=== PATIENT | female | born 1985 | race Caucasian/White ===

== ENCOUNTER 2017-08-14 17:06 | Emergency (ER) | payer OTHER ==
[~2017-08-14] VITALS: Ht 165.1 cm; Wt 77.1 kg
[2017-08-14 17:57] LABS: ABSOLUTE BASOPHIL COUNT 0 /CUMM (0.0-0.2); ABSOLUTE EOSINOPHIL COUNT 0.1 /CUMM (0.0-0.7); ABSOLUTE GRANULOCYTE CT 4.6 /CUMM (1.4-6.5); ABSOLUTE LYMPH COUNT 2.6 /CUMM (1.2-3.4); ABSOLUTE MONOCYTE COUNT 0.3 /CUMM (0.10-0.60); BASOPHIL % 0.2 % (0.0-2.0); EOSINOPHIL % 0.7 % (0-5); GRANULOCYTE % 60.9 % (42.2-75.2); HEMATOCRIT 38.8 % (37-47); MEAN CORPUSCULAR HGB 28.4 PG (27.0-31.0); MEAN CORPUSCULAR HGB CONC 33.6 G/DL (33.0-37.0); MEAN CORPUSCULAR VOLUME 84.5 FL (81.0-99.0); MEAN PLATELET VOLUME 7.9 FL (7.4-10.4); PLATELET COUNT 324 /CUMM (130-400); RBC DISTRIBUTION WIDTH 12.9 % (11.5-14.5); RED BLOOD CELL CT 4.59 /CUMM (4.20-5.40); WHITE BLOOD CELL COUNT 7.6 /CUMM (4.8-10.8)
--- NOTE | 2017-08-14 19:26 | ED GI/GU/ABDOMINAL COMPLAINT ---
History of Present Illness General Chief Complaint: Abdominal Pain/Flank Pain Stated Complaint: LWR ABD PAIN X2 DAYS Source: patient Exam Limitations: no limitations Vital Signs & Intake/Output Vital Signs & Intake/Output Vital Signs Date Time Temp Pulse Resp B/P B/P Pulse O2 O2 Flow FiO2 Mean Ox Delivery Rate 08/15 0034 98.4 79 15 112/68 98 Room Air 08/14 2313 98.0 98 18 105/70 99 Room Air 08/14 1740 97.4 98 18 103/68 99 Room Air ED Intake and Output 08/15 0000 08/14 1200 Intake Total Output Total Balance Patient 170 lb Weight Weight Reported by Patient Measurement Method Allergies Coded Allergies: diphenhydramine (From BENADRYL) (Severe, ANAPHYLAXIS 08/14/17) naproxen (Severe, ANAPHYLAXIS 08/14/17) tramadol (Severe, ANAPHYLAXIS 08/14/17) Reconcile Medications Doxycycline Hyclate 100 MG TABLET 1 TAB PO BID INFECTION Oxycodone HCl/Acetaminophen (Percocet 5-325 MG Tablet) 5 MG-325 MG TABLET 1 TAB PO 4XDP PRN PAIN TEN...[id number] Triage Note: 32 Y/O FEMALE C/O "SHARP" RLQ ABDOMINAL PAIN X 2 DAYS. HX ENDOMETRIOSIS AND STATES THIS FEELS SIMILIAR; LAST DOSE MOTRIN 4PM WITH NO RELIEF OF SYMPTOMS. +NAUSEA. DENIES URINARY SYMPTOMS. Triage Nurses Notes Reviewed? yes ? n Is pt currently ? No Duration: day(s):, waxing and waning Timing: recent history Quality/Severity: sharpness Location: right lower quadrant Radiation: no radiation Activities at Onset: none Modifying Factors: Worsens With: palpation. Associated Symptoms: abdominal pain, nausea/vomiting HPI: 32 yo woman h/o endometriosis, presents with 2 days of right lower quadrant pain, nausea, mild diarrhea, without vaginal discharge, fever, dysuria. Past History Travel History Traveled to [place] past 21 day No Medical History Any Pertinent Medical History? 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 No Review of Systems Review of Systems Constitutional: Denies: see HPI. Physical Exam Physical Exam Gastrointestinal: see below Comments: Review of Systems - except as otherwise noted in HPI Review of Systems Constitutional:no symptoms. EENTM:no symptoms. Respiratory:no symptoms. Cardiovascular:no symptoms. GI:no symptoms. Genitourinary:no symptoms. Musculoskeletal:no symptoms. Skin:no symptoms. Neurological/Psychological:no symptoms. Hematologic/Endocrine:no symptoms. Immunologic/Allergic:no symptoms. All Other Systems: Reviewed and Negative Physical Exam Physical Exam General Appearance: well developed/nourished, no apparent distress Head: atraumatic, normal appearance Eyes: Bilateral: normal appearance. Ears, Nose, Throat: normal pharynx, normal ENT inspection Neck: normal inspection, supple, full range of motion Respiratory: normal breath sounds, chest non-tender, no respiratory distress, quiet respiration, lungs clear Cardiovascular: regular rate/rhythm Gastrointestinal: normal bowel sounds, soft, rlq tenderness to palpation, no rebound, no guarding, no organomegaly Back: normal inspection, normal range of motion Extremities: normal inspection, normal capillary refill, normal range of motion, no edema Neurologic/Psych: no motor/sensory deficits, awake, alert, oriented x 3 Skin: intact, normal color, warm/dry Pelvic: copious clear, milky discharge with right adnexal tenderness to palpation Core Measures ACS in differential dx? No Sepsis Present: No Sepsis Focused Exam Completed? No Progress Differential Diagnosis: UTI/pyelo, endometriosis, PID vs other. Plan of Care: Orders Procedure Date/time Status Add-on Test (ER Only) 08/14 2058 Active TRICHOMONAS 08/14 1948 Complete POTASSIUM HYDROXIDE (ZAN) 08/14 1948 Complete GENITAL CULTURE 08/14 1948 Active CHLAMYDIA-GC DNA PROBE 08/14 1809 Active URINE 08/14 172 Complete URINALYSIS 08/14 172 Complete LIPASE 08/14 1722 Complete COMPREHENSIVE METABOLIC PANEL 08/14 172 Complete CBC WITHOUT DIFFERENTIAL 08/14 172 Complete Laboratory Tests 08/14/171809: Urine Color YEL, Urine Clarity CLEAR, Urine pH 6.0, Ur Specific [place] 1.025, Urine Protein NEG, Urine Ketones NEG, Urine Nitrite NEG, Urine Bilirubin NEG, Urine Urobilinogen 0.2, Ur Leukocyte Esterase NEG, Ur Microscopic EXAM NOT REQUIRED, Urine Hemoglobin NEG, Urine Glucose NEG, Urine Test NEGATIVE 08/14/17 1746: Anion Gap 13, Estimated GFR > 60, BUN/Creatinine Ratio 17.8, Glucose 100 H, Calcium 9.8, Total Bilirubin 0.7, AST 17, ALT 33, Alkaline Phosphatase 60, Total Protein 7.5, Albumin 4.4, Globulin 3.1, Albumin/Globulin Ratio 1.4, Lipase 24, CBC w Diff NO MAN DIFF REQ, RBC 4.59, MCV 84.5, MCH 28.4, MCHC 33.6, RDW 12.9, MPV 7.9, Gran % 60.9, Lymphocytes % 33.9, Monocytes % 4.3, Eosinophils % 0.7, Basophils % 0.2, Absolute Granulocytes 4.6, Absolute Lymphocytes 2.6, Absolute Monocytes 0.3, Absolute Eosinophils 0.1, Absolute Basophils 0 Microbiology 08/14 2049 GENITAL: ZAN Preparation - COMP 08/14 2049 GENITAL: Trichomonas Preparation - COMP 08/14 2049 GENITAL: Genital Culture - RECD 08/14 1948 GENITAL: GC DNA Probe - CAN Cancelled: NO SPECIMEN OBTAINED PER RN 08/14 1948 GENITAL: Chlamydia DNA Probe ([facility]) - CAN Cancelled: NO SPECIMEN OBTAINED PER RN 08/14 1809 URINE ROUT: GC DNA Probe - RECD 08/14 1809 URINE ROUT: Chlamydia DNA Probe ([facility]) - RECD Diagnostic Imaging: Viewed by Me: CT Scan. Discussed w/RAD: CT Scan. Radiology Impression: PATIENT: TENZIN GRIMM PRESENT AGE: 32 PATIENT ACCOUNT NO: [id number] : 84 LOCATION: [facility] ORDERING PHYSICIAN: Tim LOVE SERVICE DATE: 08/14/17 EXAM TYPE: CAT - CT ABD & PELVIS W IV CONTRAST EXAMINATION: CT ABDOMEN AND PELVIS WITH CONTRAST CLINICAL INFORMATION: Lower abdominal pain. COMPARISON: None TECHNIQUE: Multidetector volumetric imaging was performed of the abdomen and pelvis following IV administration of 95 mL of Optiray 320 intravenous contrast. Sagittal and coronal reformatted images were obtained on the technologist's workstation. DLP: 348.88 mGy-cm FINDINGS: LUNG BASES: The visualized lung bases are unremarkable. LIVER, GALLBLADDER, AND BILIARY TREE: The liver is normal in size, shape, and attenuation. No focal hepatic lesion or biliary ductal dilatation is present. The gallbladder is surgically absent. PANCREAS: Unremarkable. SPLEEN: Unremarkable. ADRENAL GLANDS: Unremarkable. KIDNEYS AND URETERS: The kidneys are normal in size, shape, and attenuation. No hydronephrosis, hydroureter, or calculi seen. No perinephric stranding. BLADDER: Underdistended however grossly unremarkable. GASTROINTESTINAL TRACT: The small and large bowel are unremarkable. An appendix is not clearly identified however there are no inflammatory changes in the expected location of the appendix. ABDOMINAL WALL: No significant hernia is appreciated. LYMPH NODES: No evidence of pathologically enlarged lymph nodes. A few subcentimeter lymph nodes are noted in the right lower quadrant in the pericecal region measuring up to 0.5 cm in short axis. OMENTUM, MESENTERY AND PERITONEAL CAVITY: No evidence of free intraperitoneal air or fluid. No inflammatory changes or nodularities seen in the omentum and mesentery. VASCULAR: Unremarkable. PELVIC VISCERA: Normal CT appearance of the uterus, uterus is mildly deviated to the right. There is a 2.1 cm hypodense cyst in the left ovary likely representing a physiologic cyst. Normal CT appearance of the right ovary with internal physiologic changes. OSSEOUS STRUCTURES: Unremarkable. IMPRESSION: 1. An appendix is not identified however there are no inflammatory changes in the expected location of the appendix. 2. Physiologic changes in the ovaries with a 2 cm dominant cyst in the left ovary. 3. No acute abnormality. DICTATED BY: Sara Franklin MD DATE/TIME DICTATED:08/14/172041 PROCESS DEVELOPER:CARMEN DATE/TIME TRANSCRIBED:2041 CONFIDENTIAL, DO NOT COPY WITHOUT APPROPRIATE AUTHORIZATION. < Electronically signed in Other Vendor System> SIGNED BY: Sara Franklin MD 09/24, PATIENT: TENZIN GRIMM PRESENT AGE: 32 PATIENT ACCOUNT NO: [id number] : 84 LOCATION: [facility] ORDERING PHYSICIAN: Ricky Briggs MD SERVICE DATE: 08/14/17 EXAM TYPE: US - US- TRANSVAGINAL EXAMINATION: ULTRASOUND OF THE PELVIS CLINICAL INFORMATION: Right adnexal pain. COMPARISON: CT from today.. TECHNIQUE: Transabdominal and transvaginal pelvic ultrasound. Doppler evaluation with spectral analysis was performed. A transvaginal study was performed in addition to the transabdominal study which did not yield an adequate examination of the uterus and ovaries due to superimposed distended gas-filled loops of bowel. FINDINGS: The uterus is normal in size and appearance, measuring 5.6 x 3.7 x 4.2 cm longitudinally, anteroposteriorly and transversely. The endometrial stripe thickness is normal, measuring 0.9 cm in thickness. No focal myometrial mass is seen. The cervical length is normal measuring 2.7 cm. The ovaries bilaterally are visualized and appear normal, with the right ovary measuring 2.2 x 1.5 x 2.1 cm and the left ovary measuring 2.7 x 2.2 x 2.6 cm. There are normal arterial and venous spectral waveforms bilaterally. There is a left ovarian follicular cyst measuring 1.6 x 1.5 x 2 cm. This has a simple appearance. No adnexal mass or free fluid collection seen. IMPRESSION: No evidence of active ovarian torsion at this time. Small left ovarian simple follicular cyst. DICTATED BY: Yang Torres MD DATE/TIME DICTATED:08/14/172346 PROCESS DEVELOPER:CARMEN DATE/ TIME TRANSCRIBED:08/14/172346 CONFIDENTIAL, DO NOT COPY WITHOUT APPROPRIATE AUTHORIZATION. <Electronically signed in Other Vendor System> SIGNED BY: Yang Torres MD 08/14/17 7152 Initial ED EKG: none Departure Departure Disposition: HOME OR SELF CARE Condition: Stable Clinical Impression Primary Impression: Endometriosis Secondary Impressions: PID (acute pelvic inflammatory disease) Referrals: Patient Has No Primary Care Dr (PCP/Family) Departure Forms: Customer Survey General Discharge Information Prescriptions: Current Visit Scripts Doxycycline Hyclate 1 TAB PO BID #20 TAB Oxycodone HCl/Acetaminophen (Percocet 5-325 MG Tablet) 1 TAB PO 4XDP PRN PAIN #10 TAB TEN...[id number] Comments 08/15/17, 0:10am.... pt feeling more comfortable. u/s reveals no torsion or tubo-ovarian abscess. abd ct... non acute given findings on pelvic exam (clear and white copious discharge), pt to be treated for PID... close follow up advised.
--- NOTE | 2017-08-14 20:55 | CT SCAN REPORT ---
EXAMINATION: CT ABDOMEN AND PELVIS WITH CONTRAST CLINICAL INFORMATION: Lower abdominal pain. COMPARISON: None TECHNIQUE: Multidetector volumetric imaging was performed of the abdomen and pelvis following IV administration of 95 mL of Optiray 320 intravenous contrast. Sagittal and coronal reformatted images were obtained on the technologist's workstation. DLP: 348.88 mGy-cm FINDINGS: LUNG BASES: The visualized lung bases are unremarkable. LIVER, GALLBLADDER, AND BILIARY TREE: The liver is normal in size, shape, and attenuation. No focal hepatic lesion or biliary ductal dilatation is present. The gallbladder is surgically absent. PANCREAS: Unremarkable. SPLEEN: Unremarkable. ADRENAL GLANDS: Unremarkable. KIDNEYS AND URETERS: The kidneys are normal in size, shape, and attenuation. No hydronephrosis, hydroureter, or calculi seen. No perinephric stranding. BLADDER: Underdistended however grossly unremarkable. GASTROINTESTINAL TRACT: The small and large bowel are unremarkable. An appendix is not clearly identified however there are no inflammatory changes in the expected location of the appendix. ABDOMINAL WALL: No significant hernia is appreciated. LYMPH NODES: No evidence of pathologically enlarged lymph nodes. A few subcentimeter lymph nodes are noted in the right lower quadrant in the pericecal region measuring up to 0.5 cm in short axis. OMENTUM, MESENTERY AND PERITONEAL CAVITY: No evidence of free intraperitoneal air or fluid. No inflammatory changes or nodularities seen in the omentum and mesentery. VASCULAR: Unremarkable. PELVIC VISCERA: Normal CT appearance of the uterus, uterus is mildly deviated to the right. There is a 2.1 cm hypodense cyst in the left ovary likely representing a physiologic cyst. Normal CT appearance of the right ovary with internal physiologic changes. OSSEOUS STRUCTURES: Unremarkable. IMPRESSION: 1. An appendix is not identified however there are no inflammatory changes in the expected location of the appendix. 2. Physiologic changes in the ovaries with a 2 cm dominant cyst in the left ovary. 3. No acute abnormality.
--- NOTE | 2017-08-14 23:53 | ULTRASOUND REPORT ---
EXAMINATION: ULTRASOUND OF THE PELVIS CLINICAL INFORMATION: Right adnexal pain. COMPARISON: CT from today.. TECHNIQUE: Transabdominal and transvaginal pelvic ultrasound. Doppler evaluation with spectral analysis was performed. A transvaginal study was performed in addition to the transabdominal study which did not yield an adequate examination of the uterus and ovaries due to superimposed distended gas-filled loops of bowel. FINDINGS: The uterus is normal in size and appearance, measuring 5.6 x 3.7 x 4.2 cm longitudinally, anteroposteriorly and transversely. The endometrial stripe thickness is normal, measuring 0.9 cm in thickness. No focal myometrial mass is seen. The cervical length is normal measuring 2.7 cm. The ovaries bilaterally are visualized and appear normal, with the right ovary measuring 2.2 x 1.5 x 2.1 cm and the left ovary measuring 2.7 x 2.2 x 2.6 cm. There are normal arterial and venous spectral waveforms bilaterally. There is a left ovarian follicular cyst measuring 1.6 x 1.5 x 2 cm. This has a simple appearance. No adnexal mass or free fluid collection seen. IMPRESSION: No evidence of active ovarian torsion at this time. Small left ovarian simple follicular cyst.
[2017-08-15] MEDS ORDERED: DOXYCYCLINE HY100 M4 PO (00:09)
[2017-08-15] MEDS ORDERED: PERCOCET 5-3251 EACH PO (00:09)
[2017-08-15 00:34] VITALS: BP 112/68
== END 2017-08-15 00:36 ==
LOC: ERH 17:06
PROVIDERS: Physician Assistant Medical
DX: N80.9 Endometriosis, unspecified (principal); N73.9 Female pelvic inflammatory disease, unspecified
CPT/HCPCS: 87070; 74177; 81003; 81025; 87071; 87491; 87591; 96361; 96374; 96375; J0131; J0696; J2405

== ENCOUNTER 2017-09-04 12:34 | Emergency (ER) | payer OTHER ==
[~2017-09-04] VITALS: Ht 165.1 cm; Wt 68.0 kg
[~2017-09-04 12:34] MED LIST: DOXYCYCLINE HY100 M4 PO; PERCOCET 5-3251 EACH PO
[2017-09-04 13:54] LABS: ABSOLUTE BASOPHIL COUNT 0 /CUMM (0.0-0.2); ABSOLUTE EOSINOPHIL COUNT 0.1 /CUMM (0.0-0.7); ABSOLUTE GRANULOCYTE CT 2.5 /CUMM (1.4-6.5); ABSOLUTE LYMPH COUNT 2.5 /CUMM (1.2-3.4); ABSOLUTE MONOCYTE COUNT 0.3 /CUMM (0.10-0.60); BASOPHIL % 0.4 % (0.0-2.0); EOSINOPHIL % 1.2 % (0-5); GRANULOCYTE % 46.3 % (42.2-75.2); HEMATOCRIT 36.6 % (37-47); MEAN CORPUSCULAR HGB 28.3 PG (27.0-31.0); MEAN CORPUSCULAR HGB CONC 33.4 G/DL (33.0-37.0); MEAN CORPUSCULAR VOLUME 84.7 FL (81.0-99.0); MEAN PLATELET VOLUME 8.6 FL (7.4-10.4); PLATELET COUNT 293 /CUMM (130-400); RBC DISTRIBUTION WIDTH 13.5 % (11.5-14.5); RED BLOOD CELL CT 4.32 /CUMM (4.20-5.40); WHITE BLOOD CELL COUNT 5.4 /CUMM (4.8-10.8)
[2017-09-04] MEDS ORDERED: SEROQUEL XR300 M1 PO (14:21)
[2017-09-04] MEDS ORDERED: LORAZEPAM0.5 M1 PO (14:21)
[2017-09-04] MEDS ORDERED: NITROFURANTOIN100 M6 PO (14:22)
[2017-09-04] MEDS ORDERED: ZOFRAN ODT4 M1 SL (14:22)
[2017-09-04] MEDS ORDERED: ZOLPIDEM TARTRA10 M1 PO (14:23)
[2017-09-04] MEDS ORDERED: IBUPROFEN600 M1 PO (14:23)
[2017-09-04] MEDS ORDERED: IBUPROFEN800 M1 PO (14:23)
[2017-09-04] MEDS ORDERED: ACETAMINOPHEN-1 EAC3 PO (14:24)
[2017-09-04] MEDS ORDERED: METRONIDAZOLE500 M1 (14:24)
--- NOTE | 2017-09-04 14:26 | ULTRASOUND REPORT ---
EXAMINATION: US TRANSVAGINAL CLINICAL INFORMATION: Left pelvic pain. History of ovarian cyst. Torsion. COMPARISON: 08/29/2017 TECHNIQUE: Transvaginal images of the pelvis were obtained. Color and spectral Doppler evaluation of the ovaries was performed. FINDINGS: UTERUS: Anteverted. Normal size and contour, measuring 6.3 x 3.6 x 3.7 cm (cervix to fundus x AP x transverse). Uniform, homogeneous endometrium measures 0.5 cm in width. The cervical length is 2.8 cm. RIGHT OVARY: Normal size and echogenicity measuring 2.5 x 1.1 x 1.7 cm. 2.4 mL volume. There is a 1.1 cm anechoic physiologic follicular cyst in the right ovary. Normal arterial and venous spectral Doppler waveforms. LEFT OVARY: Normal size and echogenicity measuring 2.4 x 1.1 x 2.0 cm. 2.8 mL volume. Previously seen follicular cyst is resolved. Normal arterial and venous spectral Doppler waveforms. FREE FLUID: No pelvic free fluid. IMPRESSION: Normal grayscale and Doppler evaluation of the ovaries bilaterally. No ovarian or adnexal mass. Normal arterial and venous spectral Doppler waveforms are identified within the ovaries bilaterally, strong evidence against active ovarian torsion at the time of the scan.
--- NOTE | 2017-09-04 14:34 | ED GI/GU/ABDOMINAL COMPLAINT ---
History of Present Illness General Chief Complaint: Abdominal Pain/Flank Pain Stated Complaint: "I FEEL LIKE CYST ON OVARY IS EXPLODING" Source: patient, old records Exam Limitations: no limitations Vital Signs & Intake/Output Vital Signs & Intake/Output Vital Signs Date Time Temp Pulse Resp B/P B/P Pulse O2 O2 Flow FiO2 Mean Ox Delivery Rate 09/04 1246 98.5 97 18 107/79 99 Room Air Allergies Coded Allergies: diphenhydramine (From BENADRYL) (Severe, ANAPHYLAXIS 08/14/17) ketorolac (From TORADOL) (Severe, ANAPHYLAXIS 09/04/17) naproxen (Severe, ANAPHYLAXIS 08/14/17) tramadol (Severe, ANAPHYLAXIS 08/14/17) Reconcile Medications Acetaminophen With Codeine (Acetaminophen-Cod #3 Tablet) 300 MG-30 MG TABLET 1 TAB PO AD PRN PAIN (Reported) Ibuprofen 600 MG TABLET 1 TAB PO AD PRN PAIN/INFLAMMATION (Reported) with food Ibuprofen 800 MG TABLET 1 TAB PO PRN PAIN/INFLAMMATION (Reported) Lorazepam 0.5 MG TABLET 1 TAB PO TID PRN ANXIETY (Reported) Metronidazole (Unknown Strength) TABLET (Unknown Dose) UNKNOWN (Reported) Nitrofurantoin Monohyd/M-Cryst (Nitrofurantoin [place]-Mcr 100 MG) 100 MG CAPSULE 1 CAP PO BID ABX (Reported) Ondansetron (Zofran Odt) (Unknown Strength) TAB.RAPDIS (Unknown Dose) SL AD PRN N/V (Reported) Quetiapine Fumarate (Seroquel XR) 300 MG TAB.ER.24H 1 TAB PO QPM MENTAL HEALTH (Reported) Zolpidem Tartrate 10 MG TABLET 1 TAB PO QPM SLEEP (Reported) Triage Note: PT FROM HOME C/O LEFT SIDE FLANK PAIN THAT BEGAN X2 DAYS PRIOR. PT STATES "IT GOT STRONGER TODAY AND I THINK SOMETHING LIKE POPPED, LIKE AN OVARY CYST, IT FEELS WORSER" PER PT. PT STATES LAST MEDICATED WITH 800MG MOTRIN 1 HR PRIOR WITH NO RELIEF. +NAUSEA, +3 EPISODE DIARRHEA. VSS. IVAN SANCHEZ IN TRIAGE FOR EVAL. Triage Nurses Notes Reviewed? yes LMP (ages 10-50): unknown ? N Is pt currently ? No Onset: Abrupt Duration: day(s): (2), constant, continues in ED, getting worse Timing: recent history Quality/Severity: cramping, fullness Severity Numbers: 9 Location: left lower quadrant Radiation: no radiation Activities at Onset: none Prior Abdominal Problems: similar symptoms Sexually Active: Yes Modifying Factors: Worsens With: movement, palpation. Associated Symptoms: nausea/vomiting HPI: 32-year-old female with history of endometriosis and chronic pelvic pain presents for evaluation of left lower quadrant abdominal/pelvic pain. This pain started 2 days ago and has been persistent. Pain is located left lower quadrant does not radiate. Described as cramping. Rates it as a 9 out of 10. She is currently not taking any medicine for this. There is associated nausea but no vomiting. She also reports 3 episodes of loose stools. She denies vaginal discharge or vaginal bleeding or urinary symptoms. No fevers and no back pain. Patient has been seen here on 2 other occasions over the past several weeks with similar complaints. She was initially treated for PID but is currently denying any vaginal discharge OR FEVER. She has history of endometriosis visit this is similar. (Tim Capellan) Past History Travel History Traveled to [place] past 21 day No Medical History Any Pertinent Medical History? 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 No (Tim Capellan) Review of Systems Review of Systems Constitutional: Reports: no symptoms. EENTM: Reports: no symptoms. Respiratory: Reports: no symptoms. Cardiovascular: Reports: no symptoms. GI: Reports: see HPI, abdominal pain, nausea. Genitourinary: Reports: no symptoms. Musculoskeletal: Reports: no symptoms. Skin: Reports: no symptoms. Neurological/Psychological: Reports: no symptoms. Hematologic/Endocrine: Reports: no symptoms. Immunologic/Allergic: Reports: no symptoms. All Other Systems: Reviewed and Negative (Tim Capellan) Physical Exam Physical Exam General Appearance: well developed/nourished, no apparent distress, alert, awake Head: atraumatic, normal appearance Eyes: Bilateral: normal appearance, PERRL, EOMI. Ears, Nose, Throat, Mouth: hearing grossly normal, moist mucous membrane Neck: normal inspection, supple, full range of motion Respiratory: normal breath sounds, chest non-tender, no respiratory distress, lungs clear Cardiovascular: regular rate/rhythm, normal peripheral pulses Peripheral Pulses: 2+ radial (R), 2+ radial (L) Gastrointestinal: normal bowel sounds, soft, no organomegaly, tenderness (LLQ) Back: normal inspection, normal range of motion, no vertebral tenderness Extremities: normal range of motion Neurologic/Psych: no motor/sensory deficits, awake, alert, oriented x 3, normal gait, normal mood/affect Skin: intact, normal color, warm/dry Core Measures ACS in differential dx? No Sepsis Present: No Sepsis Focused Exam Completed? No (Matt LOVE,Tim) Progress Differential Diagnosis: appendicitis, bowel obstruction, cholecystitis, diverticulitis, ectopic , endometritis, gastritis, intrauterine , kidney stone, ovarian cyst, ovarian torsion, pancreatitis, PID/ cervicitis, perforated viscous, SBO, threatened AB, UTI/pyelo Plan of Care: Orders Procedure Date/time Status URINE 09/04 1244 Complete URINALYSIS 09/04 1244 Complete COMPREHENSIVE METABOLIC PANEL 09/04 1244 Complete CBC WITHOUT DIFFERENTIAL 09/04 1244 Complete Laboratory Tests 09/04/17 1306: Urine Color YEL, Urine Clarity HAZY H, Urine pH 6.0, Ur Specific [place] 1.025, Urine Protein NEG, Urine Ketones NEG, Urine Nitrite NEG, Urine Bilirubin NEG, Urine Urobilinogen 0.2, Ur Leukocyte Esterase NEG, Ur Microscopic SEDIMENT EXAMINED, Urine RBC 1-3, Urine WBC RARE, Ur Epithelial Cells MANY H, Urine Bacteria MANY H, Urine Mucus MOD H, Urine Hemoglobin MOD H, Urine Glucose NEG , Urine Test NEGATIVE 09/04/17 1303: Anion Gap 13, Estimated GFR > 60, BUN/Creatinine Ratio 18.9, Glucose 99, Calcium 8.9, Total Bilirubin 0.6, AST 13 L, ALT 24, Alkaline Phosphatase 62, Total Protein 7.0, Albumin 4.1, Globulin 2.9, Albumin/Globulin Ratio 1.4 09/04/17 1245: CBC w Diff NO MAN DIFF REQ, RBC 4.32, MCV 84.7, MCH 28.3, MCHC 33.4, RDW 13.5, MPV 8.6, Gran % 46.3, Lymphocytes % 46.6, Monocytes % 5.5, Eosinophils % 1.2, Basophils % 0.4, Absolute Granulocytes 2.5, Absolute Lymphocytes 2.5, Absolute Monocytes 0.3, Absolute Eosinophils 0.1, Absolute Basophils 0 Patient is here for evaluation of pelvic pain. She's been seen here 3 times now for this. The pain she has today is on her left side. She did have a small cyst that was present on the ultrasound on the left side at her last visit. Vital signs are stable. Patient is medicated with Zofran. Labs repeat ultrasound ordered. Blood work is unremarkable. Including a negative white count. Ultrasound is also unremarkable. On reevaluation patient is holding her right lower quadrant. Patient has been assessed for appendicitis on 2 other visits with 2 CAT scans are both negative. She is afebrile. She has no rebound tenderness or guarding. She appears clinically well. She is afebrile. Patient is requesting additional pain medication. Offered her Toradol and Tylenol but she declines all of these. She has multiple allergies. She is requesting a narcotic medication. Patient will be given a 5 mg Percocet in the emergency department but will not be giving a prescription. Advised her she needs to follow up with her [facility] doctor. Discussed return precautions patient agrees the plan Diagnostic Imaging: Viewed by Me: Ultrasound. Discussed w/RAD: Ultrasound. Radiology Impression: PATIENT: TENZIN GRIMM PRESENT AGE: 32 PATIENT ACCOUNT NO: [id number] : 84 LOCATION: [facility] ORDERING PHYSICIAN: Tim LOVE SERVICE DATE: 09/04/17 EXAM TYPE: US - US-TRANSVAGINAL EXAMINATION: US TRANSVAGINAL CLINICAL INFORMATION: Left pelvic pain. History of ovarian cyst. Torsion. COMPARISON: 08/29/2017 TECHNIQUE: Transvaginal images of the pelvis were obtained. Color and spectral Doppler evaluation of the ovaries was performed. FINDINGS: UTERUS: Anteverted. Normal size and contour, measuring 6.3 x 3.6 x 3.7 cm (cervix to fundus x AP x transverse). Uniform, homogeneous endometrium measures 0.5 cm in width. The cervical length is 2.8 cm. RIGHT OVARY: Normal size and echogenicity measuring 2.5 x 1.1 x 1.7 cm. 2.4 mL volume. There is a 1.1 cm anechoic physiologic follicular cyst in the right ovary. Normal arterial and venous spectral Doppler waveforms. LEFT OVARY: Normal size and echogenicity measuring 2.4 x 1.1 x 2.0 cm. 2.8 mL volume. Previously seen follicular cyst is resolved. Normal arterial and venous spectral Doppler waveforms. FREE FLUID: No pelvic free fluid. IMPRESSION: Normal grayscale and Doppler evaluation of the ovaries bilaterally. No ovarian or adnexal mass. Normal arterial and venous spectral Doppler waveforms are identified within the ovaries bilaterally, strong evidence against active ovarian torsion at the time of the scan. DICTATED BY: Chandler Whitney MD DATE/TIME DICTATED:09/04/171418 [employer]ELOP[employer] PROGRAM DIRECTOR:CARMEN DATE/TIME TRANSCRIBED:09/04/171418 CONFIDENTIAL, DO NOT COPY WITHOUT APPROPRIATE AUTHORIZATION. Initial ED EKG: none (Tim Capellan) Departure Departure Disposition: HOME OR SELF CARE Condition: Stable Clinical Impression Primary Impression: Pelvic pain Referrals: Patient Has No Primary Care Dr (PCP/Family) Additional Instructions: Continue ibuprofen 800 mg every 8 hours with food as needed for pain. Make a follow-up with your [facility] doctor as soon as possible for further evaluation and treatment. Monitor symptoms return with any concerns. The hospital can no longer provide you with opioid medications. Departure Forms: Customer Survey General Discharge Information (Tim Capellan) PA/MACHINE DEICER ELEMENT WINDER Co-Sign Statement Statement: ED Attending supervision documentation- [] I saw and evaluated the patient. I have also reviewed all the pertinent lab results and diagnostic results. I agree with the findings and the plan of care as documented in the PA's/MACHINE DEICER ELEMENT WINDER's documentation. [x] I have reviewed the ED Record and agree with the PA's/MACHINE DEICER ELEMENT WINDER's documentation. [] Additions or exceptions (if any) to the PAs/MACHINE DEICER ELEMENT WINDER's note and plan are summarized below: [] (Luisa DE LEON,[facility])
[2017-09-04 14:56] VITALS: BP 112/84
== END 2017-09-04 14:56 ==
LOC: ERH 12:34
PROVIDERS: Physician Assistant Medical
DX: R10.2 Pelvic and perineal pain (principal); R11.0 Nausea
CPT/HCPCS: 81001; 81025; J1885; J3101